=== PATIENT | male | born 1965 | race Caucasian/White ===

== ENCOUNTER 2021-10-30 23:19 | Emergency (ER) | payer BC ==
[~2021-10-30] VITALS: Ht 182.8 cm; Wt 137.9 kg
[2021-10-30] MEDS ORDERED: XARE20MG PO (23:23)
== END 2021-10-31 00:01 | disposition home or self-care (01) ==
LOC: ED 23:19
DX: M79.605 Pain in left leg (principal); Z79.899 Other long term (current) drug therapy